=== PATIENT | female | born 1980 | race Two or more races ===

== ENCOUNTER 2017-04-07 09:25 | Inpatient (IN) | payer OTHER ==
[~2017-04-07] VITALS: Ht 165.1 cm; Wt 87.5 kg
[2017-04-07] MEDS ORDERED: SODIUM CHLORIDE 0.9% 1,000 ML IV ONE ×2 (12:31)
[2017-04-07 13:36] LABS: Basophils # (auto) 0.1 uL; Basophils % (auto) 0.9 % (0.0-2.0); Eosinophils # (auto) 0.1 uL; Eosinophils % (auto) 2.2 % (0.0-7.0); Hematocrit 44.5 % (36.0-46.0); Hemoglobin 14.9 g/dL (12.2-16.2); Lymphocytes # (auto) 1.8 uL; Lymphocytes % (auto) 26.9 % (10.0-50.0); Mean Corpuscular Hgb Conc. 33.4 g/dL (32.0-36.0); Mean Corpuscular Volume 89.7 fL (80.0-100.0); Monocytes # (auto) 0.4 uL; Monocytes % (auto) 5.7 % (0.0-12.0); Neutrophils # (auto) 4.3 uL; Neutrophils % (auto) 64.3 % (37.0-80.0); Platelet Count (auto) 269 10^3/uL (140-450); Red Blood Cells 4.96 10^6/uL (4.0-5.20); Red Cell Distribution Width 12.8 % (11.8-14.3); White Blood Cell 6.7 10^3/uL (4.4-10.8)
[2017-04-07 13:55] LABS: INR 0.98 (0.9-1.15); Partial Thromboplastin Time 30.6 sec (22.64-33.71); Prothrombin Time 10.7 sec (9.37-12.3)
[2017-04-07 14:05] LABS: Albumin 3.5 g/dL (3.4-5.0); BUN/Creatinine Ratio 19.4; Calcium 9.3 mg/dL (8.5-10.1); Potassium 3.8 mmol/L (3.5-5.1)
[2017-04-07 14:08] LABS: Bilirubin, Total 0.4 mg/dL (0.2-1.0); Total Protein 7.5 g/dL (6.4-8.2)
[2017-04-07] MEDS ORDERED: DOCUSATE SOD 100 MG CAP PO PRN (14:30)
[2017-04-07] MEDS ORDERED: TEMAZEPAM 15 MG CAP PO PRN (14:30)
[2017-04-07] MEDS ORDERED: PIPERACILLIN-TAZOB 3.375GM 50 ML IV ONE (14:30)
[2017-04-07] MEDS ORDERED: VANCOMYCIN PER PHARMACY 0 MG IV SCH (14:30)
[2017-04-07] MEDS ORDERED: cloNIDine HCL 0.1 MG TAB PO PRN (14:45)
[2017-04-07 18:15] VITALS: BP 140/88
[2017-04-07] MEDS: MORPHINE SULFATE 10 MG/ML INJ 1ML SDV IV PRN (18:29)
[2017-04-07] MEDS: PIPERACILLIN-TAZOB 3.375GM 50 ML IV SCH ×2 (18:29→23:59)
[2017-04-07] MEDS ORDERED: IBUP800T24 PO (19:43)
[2017-04-07] MEDS ORDERED: ACETTAB85 PO (19:43)
[2017-04-07 21:30] VITALS: BP 132/85
[2017-04-07] MEDS: SODIUM CHLOR 0.9% PF (SALINE LOCK) 10ML VIAL IV SCH (21:45)
[2017-04-07] MEDS: ASCORBIC ACID 500 MG TAB PO SCH (21:45)
[2017-04-07] MEDS: VANCOMYCIN 1GM/250ML 250 ML IV SCH (21:45)
[2017-04-07] MEDS: FAMOTIDINE 20 MG TAB PO SCH (21:45)
[2017-04-08 05:00] VITALS: BP 130/77
[2017-04-08 05:44] LABS: Basophils # (auto) 0 uL; Basophils % (auto) 0.5 % (0.0-2.0); Eosinophils # (auto) 0.1 uL; Eosinophils % (auto) 1.9 % (0.0-7.0); Hematocrit 38.9 % (36.0-46.0); Hemoglobin 13.2 g/dL (12.2-16.2); Lymphocytes % (auto) 27.2 % (10.0-50.0); Mean Corpuscular Hemoglobin 30.2 pg (28.0-32.0); Mean Corpuscular Volume 88.9 fL (80.0-100.0); Monocytes # (auto) 0.6 uL; Monocytes % (auto) 7.7 % (0.0-12.0); Neutrophils # (auto) 4.6 uL; Neutrophils % (auto) 62.7 % (37.0-80.0); Nucleated Red Blood Cells % 0.1 %; Platelet Count (auto) 232 10^3/uL (140-450); Red Blood Cells 4.38 10^6/uL (4.0-5.20); White Blood Cell 7.3 10^3/uL (4.4-10.8)
[2017-04-08] MEDS: PIPERACILLIN-TAZOB 3.375GM 50 ML IV SCH ×3 (05:49→19:14)
[2017-04-08] MEDS: SODIUM CHLOR 0.9% PF (SALINE LOCK) 10ML VIAL IV SCH ×3 (05:49→21:58)
[2017-04-08 06:03] LABS: Albumin 2.9 g/dL (3.4-5.0); Calcium 8.3 mg/dL (8.5-10.1)
[2017-04-08 06:06] LABS: Bilirubin, Total 0.6 mg/dL (0.2-1.0); Total Protein 6.3 g/dL (6.4-8.2)
[2017-04-08 09:00] VITALS: BP 131/82
[2017-04-08] MEDS: VANCOMYCIN 1GM/250ML 250 ML IV SCH ×2 (09:43→20:55)
[2017-04-08] MEDS: FAMOTIDINE 20 MG TAB PO SCH ×2 (09:44→21:58)
[2017-04-08] MEDS: ASCORBIC ACID 500 MG TAB PO SCH ×2 (09:44→21:58)
[2017-04-08] MEDS: ZINC SULFATE 220 MG CAP PO SCH (09:44)
[2017-04-08] MEDS: MULTIPLE VITAMIN TAB PO SCH (09:44)
[2017-04-08] MEDS: DIPHENOXYLATE W/ATROPINE 2.5 MG TAB PO PRN ×2 (12:11→20:32)
[2017-04-08 12:42] LABS: Urine Bacteria NONE SEEN /hpf (None Seen); Urine Blood 2+ /uL (Negative); Urine Specific Gravity 1.011 (1.001-1.035); Urine WBC <1 /hpf (0 - 5)
[2017-04-08 13:00] VITALS: BP 131/80
[2017-04-08] MEDS: MORPHINE SULFATE 10 MG/ML INJ 1ML SDV IV PRN (13:55)
[2017-04-08 17:00] VITALS: BP 138/92
[2017-04-08 21:39] VITALS: BP 119/75
[2017-04-09] MEDS: PIPERACILLIN-TAZOB 3.375GM 50 ML IV SCH ×4 (00:11→18:00)
[2017-04-09] MEDS: MORPHINE SULFATE 10 MG/ML INJ 1ML SDV IV PRN ×3 (04:37→18:10)
[2017-04-09 05:00] VITALS: BP 118/75
[2017-04-09] MEDS: SODIUM CHLOR 0.9% PF (SALINE LOCK) 10ML VIAL IV SCH ×3 (05:41→23:20)
[2017-04-09 07:15] LABS: Basophils # (auto) 0 uL; Basophils % (auto) 0.5 % (0.0-2.0); Eosinophils # (auto) 0.2 uL; Hematocrit 38.9 % (36.0-46.0); Hemoglobin 13.2 g/dL (12.2-16.2); Lymphocytes # (auto) 2.1 uL; Lymphocytes % (auto) 25.2 % (10.0-50.0); Mean Corpuscular Hemoglobin 30.1 pg (28.0-32.0); Mean Corpuscular Volume 88.6 fL (80.0-100.0); Monocytes # (auto) 0.6 uL; Monocytes % (auto) 7.4 % (0.0-12.0); Neutrophils # (auto) 5.3 uL; Neutrophils % (auto) 64.9 % (37.0-80.0); Nucleated Red Blood Cells % 0.1 %; Platelet Count (auto) 234 10^3/uL (140-450); Red Blood Cells 4.39 10^6/uL (4.0-5.20); White Blood Cell 8.2 10^3/uL (4.4-10.8)
[2017-04-09 07:37] LABS: BUN/Creatinine Ratio 12.5; Calcium 8.1 mg/dL (8.5-10.1); Potassium 3.8 mmol/L (3.5-5.1)
[2017-04-09 07:51] VITALS: BP 118/70
[2017-04-09] MEDS: ONDANSETRON HCL 4 MG/2 ML VIAL IV PRN ×3 (08:54→18:10)
[2017-04-09] MEDS: VANCOMYCIN 1GM/250ML 250 ML IV SCH ×2 (10:55→23:19)
[2017-04-09] MEDS ORDERED: LIDOCAINE 2%HCL (LOCAL ANESTH.) INJ 20ML MDV IJ ONE (11:30)
[2017-04-09 11:32] VITALS: BP 114/86
[2017-04-09] MEDS: MULTIPLE VITAMIN TAB PO SCH (11:44)
[2017-04-09] MEDS: ASCORBIC ACID 500 MG TAB PO SCH ×2 (11:44→22:30)
[2017-04-09] MEDS: FAMOTIDINE 20 MG TAB PO SCH ×2 (11:44→22:30)
[2017-04-09] MEDS: ZINC SULFATE 220 MG CAP PO SCH (11:44)
[2017-04-09] MEDS: DIPHENOXYLATE W/ATROPINE 2.5 MG TAB PO PRN (11:58)
[2017-04-09] MEDS: SILVER SULFADIAZINE 1 % TOPICAL CREAM 50GM TOP SCH (12:47)
[2017-04-09] MEDS ORDERED: SILVER SULFADIAZINE 1 % TOPICAL CREAM 50GM TOP ONE (12:48)
[2017-04-09 16:14] VITALS: BP 118/71
[2017-04-09 22:00] VITALS: BP 124/80
[2017-04-10] VITALS (7 sets, daily range): BP systolic 115–152; BP diastolic 72–88
[2017-04-10] MEDS: PIPERACILLIN-TAZOB 3.375GM 50 ML IV SCH ×4 (00:06→18:18)
[2017-04-10] MEDS: ACETAMINOPHEN 325 MG TAB PO PRN (05:00)
[2017-04-10] MEDS: SODIUM CHLOR 0.9% PF (SALINE LOCK) 10ML VIAL IV SCH ×3 (05:45→22:05)
[2017-04-10 06:51] LABS: Basophils # (auto) 0.1 uL; Basophils % (auto) 0.5 % (0.0-2.0); Eosinophils # (auto) 0.1 uL; Hematocrit 39.7 % (36.0-46.0); Hemoglobin 13.5 g/dL (12.2-16.2); Lymphocytes # (auto) 1.6 uL; Lymphocytes % (auto) 15.9 % (10.0-50.0); Mean Corpuscular Hemoglobin 30.1 pg (28.0-32.0); Mean Corpuscular Volume 88.5 fL (80.0-100.0); Monocytes # (auto) 0.7 uL; Monocytes % (auto) 6.9 % (0.0-12.0); Neutrophils # (auto) 7.7 uL; Neutrophils % (auto) 75.7 % (37.0-80.0); Platelet Count (auto) 229 10^3/uL (140-450); Red Blood Cells 4.48 10^6/uL (4.0-5.20); White Blood Cell 10.2 10^3/uL (4.4-10.8)
[2017-04-10 07:07] LABS: BUN/Creatinine Ratio 11.5; Calcium 8.7 mg/dL (8.5-10.1); Potassium 3.7 mmol/L (3.5-5.1)
[2017-04-10 07:11] LABS: Magnesium 2.5 mg/dL (1.6-2.6); Phosphorus 4.2 mg/dL (2.5-4.90)
[2017-04-10] MEDS: ZINC SULFATE 220 MG CAP PO SCH (09:39)
[2017-04-10] MEDS: ASCORBIC ACID 500 MG TAB PO SCH ×2 (09:40→21:59)
[2017-04-10] MEDS: FAMOTIDINE 20 MG TAB PO SCH ×2 (09:40→21:59)
[2017-04-10] MEDS: MULTIPLE VITAMIN TAB PO SCH (09:40)
[2017-04-10] MEDS ORDERED: [UNRECOGNIZED DRUG - CODE] IV (17:05)
[2017-04-10] MEDS ORDERED: SILV1CRE82 TOP (17:05)
[2017-04-10] MEDS: VANCOMYCIN 1GM/250ML 250 ML IV SCH ×2 (18:17→22:50)
[2017-04-10] MEDS: SILVER SULFADIAZINE 1 % TOPICAL CREAM 50GM TOP SCH (18:17)
[2017-04-10] MEDS: ONDANSETRON HCL 4 MG/2 ML VIAL IV PRN (21:58)
[2017-04-10] MEDS: OXYCODONE W/ ACETAMINOPHEN 5/325MG TABLET PO PRN (21:59)
[2017-04-10] MEDS: DIPHENOXYLATE W/ATROPINE 2.5 MG TAB PO PRN (21:59)
[2017-04-11] MEDS: PIPERACILLIN-TAZOB 3.375GM 50 ML IV SCH ×3 (01:03→12:40)
[2017-04-11 05:00] VITALS: BP 118/81
[2017-04-11] MEDS: ACETAMINOPHEN 325 MG TAB PO PRN (05:59)
[2017-04-11] MEDS: SODIUM CHLOR 0.9% PF (SALINE LOCK) 10ML VIAL IV SCH ×2 (06:01→15:04)
[2017-04-11 07:30] VITALS: BP 109/63
[2017-04-11] MEDS: OXYCODONE W/ ACETAMINOPHEN 5/325MG TABLET PO PRN (08:30)
[2017-04-11 08:38] VITALS: BP 109/63
[2017-04-11] MEDS: ONDANSETRON HCL 4 MG/2 ML VIAL IV PRN ×3 (09:46→20:48)
[2017-04-11] MEDS: MULTIPLE VITAMIN TAB PO SCH (11:08)
[2017-04-11] MEDS: ASCORBIC ACID 500 MG TAB PO SCH (11:09)
[2017-04-11] MEDS: VANCOMYCIN 1GM/250ML 250 ML IV SCH (11:09)
[2017-04-11] MEDS: FAMOTIDINE 20 MG TAB PO SCH (11:09)
[2017-04-11] MEDS: ZINC SULFATE 220 MG CAP PO SCH (11:22)
[2017-04-11] MEDS: DIPHENOXYLATE W/ATROPINE 2.5 MG TAB PO PRN ×2 (11:22→20:48)
[2017-04-11 13:06] VITALS: BP 100/62
[2017-04-11] MEDS: SILVER SULFADIAZINE 1 % TOPICAL CREAM 50GM TOP SCH (16:03)
[2017-04-11 16:56] VITALS: BP 112/72
[2017-04-11] MEDS ORDERED: PIPERACILLIN-TAZOB 3.375GM 50 ML IV SCH (18:00)
[2017-04-11 18:49] VITALS: BP 112/72
== END 2017-04-11 22:15 | disposition home or self-care (01) | DRG 603 ==
LOC: ER 09:25 → OVERFLOW 09:26 → WEST WING 17:33
PROVIDERS: ADMIT Internal Medicine; ATTEND Nurse Practitioner Acute Care
PROC: 0HBQXZZ Excision of Finger Nail, External Approach (ICD-10-PCS; principal; 2017-04-09)
DX: L03.011 Cellulitis of right finger (principal); I10 Essential (primary) hypertension; R19.7 Diarrhea, unspecified; M77.9 Enthesopathy, unspecified; Z82.49 Family history of ischemic heart disease and other diseases of the circulatory system; Z79.899 Other long term (current) drug therapy; T36.0X5A Adverse effect of penicillins, initial encounter
CPT/HCPCS: 36415; 71046; 73200; 80048; 80053; 80202; 81001; 83735; 84100; 85025; 85610; 85730; 87040; 87045; 87205; 87493; 87899; 96361; 96374; J2405; J2543